=== PATIENT | female | born 1990 | race Caucasian/White ===

== ENCOUNTER 2020-01-16 16:20 | Emergency (ER) | payer BC ==
--- NOTE | 2020-01-16 17:10 | UC ---
[facility] HPI HPI Summary: 29-year-old woman is here for a telehealth visit due to a sore throat that started yesterday. She has a friend with strep throat with similar symptoms. She reports she has tender tonsils that are swollen with white spots. She also reports she's had about 3 weeks of allergy symptoms. She reports she usually gets environmental allergies at this time year. Denies any sinus pressure. No fevers no cough no shortness of breath. No known exposure to Covid. Reports a work she gets her temperature checked every day and has not had fever. Patient prefers to telehealth to avoid exposure to chemical disease given the Covid outbreak. [facility] PMH Previously Healthy: Yes Infectious Disease History: No - Family History Known Family History: Positive: Non-Contributory - Social History Alcohol Use: None Substance Use Type: Reports: Marijuana Substance Use Comment - Amount & Last Used: every 2-3 days Smoking Status (MU): Never Smoked Tobacco [facility] ROS All Other Systems Reviewed And Are Negative: Yes Positive: Other - see hpi Eyes: Negative Positive: Sore Throat, Nasal Discharge Cardiovascular: Negative Respiratory: Negative Gastrointestinal: Negative Negative: Myalgia Neurological/Mental Status: Negative Psychological: Normal [facility] PE Telehealth Physical Exam: This was a telehealth visit to decrease risk of transmission of Covid which decreases the physical examination. Appearance: Positive: Well-Appearing Skin: Positive: Skin Color Reflects Adequate Perfusion Eyes: Positive: Normal ENT: Positive: Other - using 0 my was able to see the patient's posterior pharynx uvula is midline tonsils are slightly enlarged 2+ bilaterally. No evidence of peritonsillar abscess. Voice is normal. Neck: Positive: Supple Respiratory/Lung Sounds: Positive: Normal Respiratory Effort Musculoskeletal: Positive: Normal Tone Neurological: Positive: Alert, Oriented to Person Place, Time Psychiatric: Positive: Normal [facility] Course/Dx Assessment/Plan: DISCUSSED VIRAL VERSES BACTERIAL INFECTIONS AND THE ROLE OF ANTIBIOTICS. THE PATIENT PREFERS TO HAVE AN ANTIBIOTIC RX TO USE IF NOT IMPROVING AT THIS TIME. Provider Diagnoses: Pharyngitis, Tonsillitis [facility] Disposition Provider Recommendation for Treatment: [facility] Telehealth Visit: Patient Consented Verbally to Telehealth Visit Telehealth Patient Statement: The patient should understand that they are communicating with their provider via a secure communication platform and that all the same privacy and confidentiality rules apply. They will also be responsible for copayments or coinsurances that apply to any Telehealth visit. Patient Identifiers: 2 Patient Identifiers Verified for Telehealth Visit Telehealth Visit Start Time: 17:00 Telehealth Visit End Time: 17:25 Telehealth Provider Attestation: The above services were appropriate to provide in a Telehealth setting.
== END 2020-01-16 17:34 | disposition home or self-care (01) ==
LOC: UCCORT 16:20
DX: J02.9 Acute pharyngitis, unspecified (principal)
CPT/HCPCS: 87651; 99201; G0463